=== PATIENT | female | born 1960 | race Asian ===

== ENCOUNTER → 2023-06-06 15:04 | Outpatient (REF) | payer OTHER, SELFPAY | LOC: WDC 15:04 | PROVIDERS: ATTENDING PHYSICIAN Internal Medicine | DX: Z12.31 Encounter for screening mammogram for malignant neoplasm of breast (principal) | CPT/HCPCS: 77063; 77067 ==

== ENCOUNTER → 2023-08-09 07:18 | Outpatient (REF) | payer OTHER, SELFPAY | LOC: RAD 07:18 | PROVIDERS: ATTENDING PHYSICIAN Physician Assistant | DX: R41.3 Other amnesia (principal) | CPT/HCPCS: 70450 ==